=== PATIENT | male | born 1980 | race African-American/Black ===

== ENCOUNTER 2022-10-08 16:12 | Emergency (ER) | payer OTHER ==
[2022-10-08 16:40] VITALS: BP 121/73; PULSE 74; RESP 18; TEMP 98; BMI 24.3
[2022-10-08 19:27] LABS: EPI CELLS 1 /uL (0-25.1); HYALINE CASTS 0 /uL (0-3.1); URINE APPEARANCE CLEAR; URINE BACTERIA 14 /uL (0-1359); URINE BILIRUBIN NEGATIVE (NEGATIVE); URINE COLOR YELLOW; URINE GLUCOSE (UA) NEGATIVE (NEGATIVE); URINE KETONE TRACE (NEGATIVE); URINE LEUK ESTERASE 2+ (NEGATIVE); URINE NITRITE NEGATIVE (NEGATIVE); URINE PROTEIN NEGATIVE (NEGATIVE); URINE RBC 22 /uL (0-23.9); URINE UROBILINOGEN 0.2 mg/dL (0.2-1.0); URINE WBC 581 /uL (0-25.8)
[2022-10-08] MEDS ORDERED: DOXYCYCLINE HYCLATE 100 MG CAPSULE PO ONE ×2 (19:45→19:47)
[2022-10-08 20:13] LABS: SYPHILIS W/ RPR CONF NON-REACTIVE (NONREACTIVE)
[2022-10-08 20:42] LABS: HIV INTERPRETATION NEGATIVE (NEGATIVE)
== END 2022-10-08 20:34 | disposition home or self-care (01) ==
LOC: JERFT 16:12
PROC: 3E023GC Introduction of Other Therapeutic Substance into Muscle, Percutaneous Approach (ICD-10-PCS; principal; 2022-10-08)
DX: N50.3 Cyst of epididymis (principal); N39.0 Urinary tract infection, site not specified; A64 Unspecified sexually transmitted disease
CPT/HCPCS: 36415; 76870-TC; 81003; 86780; 87086; 87389; 87491; 87591; 87661; 99284-25

== ENCOUNTER 2023-03-28 20:26 | Emergency (ER) | payer OTHER ==
[2023-03-28 20:38] VITALS: BP 131/77; PULSE 75; RESP 20; TEMP 98.5; BMI 26.1
[2023-03-28] MEDS ORDERED: LIDOCAINE 1%/EPI 1:100000 (20 ML MULTI DOSE VIAL) IJ ONE (20:52)
[2023-03-28] MEDS ORDERED: DIPHTH,PERTUSS(ACELL),TET 0.5 ML DISP.SYRIN IM ONE (20:52)
[2023-03-28] MEDS ORDERED: LIDOCAINE 1%/EPI 1:100000 (50 ML MULTI DOSE VIAL) ONE (20:57)
[2023-03-28] MEDS ORDERED: LIDOCAINE HCL 1%, 10 MG/ML (10ML VIAL) MDV ONE (22:28)
[2023-03-29] MEDS ORDERED: CEPHALEXIN MONOHYDRATE 500 MG CAPSULE (UD) PO ONE (00:04)
[2023-03-29] MEDS ORDERED: ACETAMINOPHEN 325 MG TABLET (FP) PO ONE (00:05)
[2023-03-29] MEDS ORDERED: CEPHALEXIN MONOHYDRATE 500 MG CAPSULE (UD) ONE (00:29)
[2023-03-29] MEDS ORDERED: ACETAMINOPHEN 325 MG TABLET (FP) ONE (00:29)
[2023-03-29] MEDS ORDERED: DIPHTH,PERTUSS(ACELL),TET 0.5 ML DISP.SYRIN IM ONE (00:30)
[2023-03-29] MEDS ORDERED: LIDOCAINE HCL 1%, 10 MG/ML (50 mL VIAL) INF ONE (00:36)
== END 2023-03-29 00:46 | disposition home or self-care (01) ==
LOC: JER 20:26
PROC: 0HQCXZZ Repair Left Upper Arm Skin, External Approach (ICD-10-PCS; principal; 2023-03-28)
PROC: 0HQEXZZ Repair Left Lower Arm Skin, External Approach (ICD-10-PCS; 2023-03-28)
PROC: 0HQGXZZ Repair Left Hand Skin, External Approach (ICD-10-PCS; 2023-03-28)
PROC: 3E0234Z Introduction of Serum, Toxoid and Vaccine into Muscle, Percutaneous Approach (ICD-10-PCS; 2023-03-29)
DX: S51.812A Laceration without foreign body of left forearm, initial encounter (principal); S61.412A Laceration without foreign body of left hand, initial encounter; S61.211A Laceration without foreign body of left index finger without damage to nail, initial encounter; S51.012A Laceration without foreign body of left elbow, initial encounter; S41.112A Laceration without foreign body of left upper arm, initial encounter; S61.012A Laceration without foreign body of left thumb without damage to nail, initial encounter; S61.213A Laceration without foreign body of left middle finger without damage to nail, initial encounter; W20.8XXA Other cause of strike by thrown, projected or falling object, initial encounter
CPT/HCPCS: 12005; 73090-TC-LT-FY; 73130-TC-LT-FY; 90471; 90715; 99283-25

== ENCOUNTER 2023-04-06 13:54 | Day surgery (SDC) | payer OTHER ==
[2023-04-05 15:41] VITALS: BMI 26.1
[2023-04-06] MEDS ORDERED: ACETAMINOPHEN 1000 MG/100 ML BAG IVPB ONE (14:57)
[2023-04-06] MEDS ORDERED: BUPIVACAINE HCL/PF 0.25% (2.5MG/ML) 10 ML VIAL ONE (15:00)
[2023-04-06] MEDS ORDERED: ceFAZolin SODIUM 1 GM VIAL ONE (15:02)
[2023-04-06] MEDS ORDERED: LIDOCAINE HCL/PF 2% SDV 5ML VIAL ONE (15:02)
[2023-04-06] MEDS ORDERED: MIDAZOLAM HCL 2 MG/2 ML SINGLE DOSE VIAL ONE (15:03)
[2023-04-06] MEDS ORDERED: PROPOFOL 20 ML ONE (15:03)
[2023-04-06] MEDS ORDERED: ONDANSETRON 4 MG/2 ML VIAL IVPUSH PRN (15:30)
[2023-04-06] MEDS ORDERED: oxyCODONE HCL 5 MG TABLET PO PRN (15:30)
[2023-04-06] MEDS ORDERED: LACTATED RINGERS SOLUTION 1,000 ML IV SCH (15:30)
[2023-04-06] MEDS ORDERED: DEXAMETHASONE SOD PHOSPHATE 4 MG/1 ML VIAL ONE (16:08)
[2023-04-06] MEDS ORDERED: ONDANSETRON 4 MG/2 ML VIAL ONE (16:55)
[2023-04-06] MEDS ORDERED: SEVOFLURANE 250 ML BTL ONE (16:59)
[2023-04-06] MEDS ORDERED: KETOROLAC TROMETHAMINE 30 MG/1 ML VIAL ONE (17:22)
[2023-04-06] MEDS ORDERED: BUPIVACAINE HCL/PF 0.25% (2.5MG/ML) 10 ML VIAL IJ ONE (17:39)
[2023-04-06] MEDS ORDERED: ACETAMINOPHEN INJECTION 100 ML IVPB ONE (17:48)
[2023-04-06] MEDS ORDERED: oxyCODONE HCL 5 MG TABLET ONE (18:16)
[2023-04-06] MEDS ORDERED: oxyCODONE HCL 5 MG TABLET PO ONE (18:20)
[2023-04-06 18:24] VITALS: PULSE 64; RESP 18; TEMP 97.8
[2023-04-06 18:37] VITALS: BP 135/81
== END 2023-04-06 18:46 | disposition home or self-care (01) ==
LOC: FASU 13:54
PROVIDERS: ATTEND Orthopaedic Surgery Hand Surgery
PROC: 0LS80ZZ Reposition Left Hand Tendon, Open Approach (ICD-10-PCS; 2023-04-06)
PROC: 01Q40ZZ Repair Ulnar Nerve, Open Approach (ICD-10-PCS; principal; 2023-04-06 16:18)
DX: S64.491A Injury of digital nerve of left index finger, initial encounter (principal); S61.211A Laceration without foreign body of left index finger without damage to nail, initial encounter; X58.XXXA Exposure to other specified factors, initial encounter; Y93.9 Activity, unspecified; Y92.9 Unspecified place or not applicable
CPT/HCPCS: 94760

== ENCOUNTER 2023-08-03 16:24 | Emergency (ER) | payer OTHER ==
[2023-08-03 16:38] VITALS: BP 150/83; PULSE 68; RESP 18; TEMP 98.5; BMI 24.3
[2023-08-03] MEDS ORDERED: CLINDAMYCIN HCL 150 MG CAPSULE (FP) PO ONE (19:06)
[2023-08-03] MEDS ORDERED: CLINDAMYCIN HCL 150 MG CAPSULE (FP) ONE (19:15)
== END 2023-08-03 19:37 | disposition home or self-care (01) ==
LOC: JER 16:24 → JERFT 16:24
PROC: 0HQGXZZ Repair Left Hand Skin, External Approach (ICD-10-PCS; principal; 2023-08-03)
DX: S61.211A Laceration without foreign body of left index finger without damage to nail, initial encounter (principal); W23.1XXA Caught, crushed, jammed, or pinched between stationary objects, initial encounter
CPT/HCPCS: 73130-TC-LT-FY; 99283-25